=== PATIENT | female | born 1955 | race Asian ===

== ENCOUNTER 2016-11-19 11:37 | Emergency (ER) | payer OTHER ==
[~2016-11-19] VITALS: Wt 72.1 kg
[2016-11-19] MEDS ORDERED: SOD CHLORIDE 0.9% 1,000 ML IV STA (12:05)
[2016-11-19 12:27] LABS: ADD SCAN DIFF NO
[2016-11-19 12:29] LABS: BASOPHILS % 0.4 % (0.0-2.0); EOSINOPHILS # 0.1 10^3/ul (0.0-0.5); EOSINOPHILS % 1.5 % (0.0-7.0); HEMATOCRIT 40.7 % (37.0-47.0); HEMOGLOBIN 13.9 g/dl (12.0-16.0); LYMPHOCYTES % 42.8 % (15.0-51.0); MEAN CORPUSCULAR HEMOGLOBIN 29.8 pg (29.0-33.0); MEAN CORPUSCULAR HGB CONC 34.2 g/dl (32.0-37.0); MEAN CORPUSCULAR VOLUME 87.2 fl (82.0-101.0); MEAN PLATELET VOLUME 9.1 fl (7.4-10.4); MONOCYTE # 0.2 10^3/ul (0.3-0.9); MONOCYTES % 4.7 % (0.0-11.0); NEUTROPHIL # 2.4 10^3/ul (1.6-7.5); NEUTROPHILS % 50.4 % (39.0-77.0); PLATELET COUNT 287 10^3/UL (140-415); RED BLOOD COUNT 4.67 10^6/ul (4.20-5.40); RED CELL DISTRIBUTION WIDTH 12.3 % (11.5-14.5); WHITE BLOOD COUNT 4.7 10^3/ul (4.8-10.8)
[2016-11-19] MEDS ORDERED: NITROGLYCERIN (SL) 0.4 MG TAB SL PRN (12:30)
--- NOTE | 2016-11-19 12:31 | RADRPT ---
PROCEDURE: Chest x-ray CLINICAL INDICATION: Chest pain TECHNIQUE: Chest single view COMPARISON: None FINDINGS: The heart is normal in size. The pulmonary vessels are normal in caliber. The lungs are clear. Th e costophrenic angles are sharp. The visualized bony thorax is unremarkable. IMPRESSION: No acute cardiopulmonary disease. RPTAT: HH .Yuri Snyder MD, Date Time Electronically viewed and signed by .Yuri Snyder MD, MD on 11/19/2016 12:30 .W/
[2016-11-19 12:40] LABS: INR 0.91; PROTIME 12.2 Sec (12.2-14.2)
[2016-11-19 12:41] LABS: PARTIAL THROMBOPLASTIN TIME 24.9 Sec (25.0-35.0)
[2016-11-19 12:44] LABS: CHLORIDE 102 mmol/L (97-110); POTASSIUM 3.6 mmol/L (3.5-5.1); SODIUM 146 mmol/L (135-144)
[2016-11-19 12:47] LABS: ANION GAP 19 (8-16); BLOOD UREA NITROGEN 9 mg/dl (7-20); CALCIUM 10.1 mg/dl (8.4-10.2); CARBON DIOXIDE 29 mmol/L (21-31); CREATININE 0.68 mg/dl (0.44-1.00); GLUCOSE 113 mg/dl (70-220)
[2016-11-19 13:02] LABS: TROPONIN-I < 0.012 ng/ml (0.00-0.12)
[2016-11-19] MEDS ORDERED: ASPI81TA3 PO (13:18)
[2016-11-19] MEDS ORDERED: PRAV40TA76 PO (13:18)
[2016-11-19] MEDS ORDERED: LISI20TA11 PO (13:18)
[2016-11-19] MEDS ORDERED: HYDR12.58 PO (13:19)
[2016-11-19] MEDS ORDERED: KETOROLAC 15 MG INJ IV STA (13:35)
[2016-11-19] MEDS ORDERED: IOHEXOL 350MG/ML 50 ML BTL ONE (14:19)
[2016-11-19] MEDS ORDERED: IOHEXOL 100 ML ONE (14:19)
[2016-11-19] MEDS ORDERED: SOD CHLORIDE 0.9% 100 ML ONE (14:19)
--- NOTE | 2016-11-19 14:48 | RADRPT ---
PROCEDURE: CTA Chest and pulmonary angiogram. CLINICAL INDICATION: Chest pain and shortness of breath. TECHNIQUE: CT scan of the chest and CT pulmonary angiogram was performed on a multidetector high-r Innometrix Incolution CT scanner. High-resolution thin slice coronal and sagittal imaging was obtained from the axial source images. 3-D volumetric rendered post processing was performed as well. The patient w as examined following the uncomplicated intravenous administration of 110 cc of Omnipaque-350. The i mages were reviewed on a PACS workstation. The total exam CTDI equals 14.08, and 17.82 and the total exam DLP equals 626.39 mGy-cm. One or more of the following dose reduction techniques were used: Automated exposure control. Adjustment of the mA and/or kV according to patient size. Use of iterative reconstruction technique. COMPARISON: None FINDINGS: CT chest: The lungs are clear. No focal opacification, effusion, pneumothorax, edema, or nodules are seen. T he central tracheobronchial tree is clear. The mediastinum is unremarkable without evidence for mass or lymphadenopathy. The vascular structur es of the mediastinum are normal in course and caliber. The heart size is normal without pericardia l thickening or effusion. The axillary, subpectoral, and supraclavicular regions are unremarkable. Imaging obtained through the upper abdomen is remarkable for mild hiatal hernia. The adrenal glands are symmetrically normal. The surrounding chest wall is unremarkable. The osseous structures are unremarkable CT pulmonary angiogram: No thrombus, clot, filling defect, or pulmonary web is identified. The pulmonary arteries are ajay l in caliber and morphology. No filling defect is present to suggest pulmonary embolism. There is no evidence for pulmonary arterial hypertension. IMPRESSION: 1. No evidence for pulmonary embolism. 2. No mass, lymphadenopathy or acute infiltrates. 3. Small hiatal hernia. RPTAT: BB .Seven Baumann MD, MD Date Time Electronically viewed and signed by .Seven Baumann MD, on 11/19/2016 14:47 .O/
--- NOTE | 2016-11-19 15:56 | ERD ---
ER Documentation Chief Complaint Date/Time DATE: 11/19/16 TIME: 15:52 Chief Complaint CHEST PAIN SINCE 0300. NON PROVOKED. MILD SOB NO N/V. NO DIAPHORESIS HPI This is a 61-year-old female who presents to the emergency room for evaluation of chest pain. The patient states that she has had chest pain constantly since 3 AM. She states it is an achy pain in the center of her chest with no radiation. The patient denies any shortness of breath associated this, denies any nausea, vomiting or diaphoresis came to the ER today for evaluation. ROS All systems reviewed and are negative except as per history of present illness. Medications Home Meds Reported Medications Hydrochlorothiazide* (Hydrochlorothiazide*) 12.5 Mg Tablet, 12.5 MG PO DAILY, # 30 TAB 11/19/16 Pravastatin Sodium* (Pravastatin Sodium*) 40 Mg Tablet, 40 MG PO HS, TAB 11/19/16 Aspirin* (Aspirin* Chew) 81 Mg Tab.chew, 81 MG PO DAILY, TAB.CHEW 11/19/16 Lisinopril* (Lisinopril*) 20 Mg Tablet, 20 MG PO DAILY, #30 TAB 11/19/16 Allergies Allergies: Coded Allergies: No Known Allergy (Unverified , 11/19/16) PMhx/Soc Medical and Surgical Hx: pt denies Medical Hx, pt denies Surgical Hx Hx Alcohol Use: No Hx Substance Use: No Hx Tobacco Use: No Smoking Status: Never smoker Physical Exam Vitals Vital Signs Date Time Temp Pulse Resp B/P Pulse Ox O2 Delivery O2 Flow Rate FiO2 11/19/16 13:35 85 20 135/72 99 Room Air 11/19/16 12:17 Nasal Cannula 11/19/16 11:41 99.5 112 20 167/89 99 Physical Exam INITIAL VITAL SIGNS: Reviewed by me GENERAL: The patient is well developed and appropriate for usual state of health in no apparent distress HEENT: Pupils equal, round, and reactive to light. EOMI. There is no scleral icterus. NECK: C-spine is soft and supple, there is no meningismus. There is no cervical lymphadenopathy. LUNGS: Tachycardic. There are no rales, wheezes or rhonchi. HEART: Regular rate and rhythm, no murmurs, clicks, rubs or gallops. ABDOMEN: Soft, non-tender, non-distended. There are bowel sounds in all four quadrants. No rebound or guarding. EXTREMITIES: There is no peripheral cyanosis or edema. No focal swelling or erythema. NEUROLOGICAL: The patient moves all four extremities with 5/5 strength. Cranial nerves II - XII are intact. Normal gait. Alert and oriented SKIN: There is no apparent rash or petechiae. HEME/LYMPHATIC: There is no evidence of excessive bruising or lymphedema. PSYCHIATRIC: The patient does not appear anxious or depressed. Result Diagram: 11/19/16 1211 11/19/16 1210 Results 24 hrs Laboratory Tests Test 11/19/16 12:10 11/19/16 12:11 11/19/16 15:00 Activated Partial Thromboplast Time 24.9Sec Anion Gap 19 Blood Urea Nitrogen 9mg/dl Calcium Level 10.1mg/dl Carbon Dioxide Level 29mmol/L Chloride Level 102mmol/L Creatinine 0.68mg/dl Glucose Level 113mg/dl INR International Normalized Ratio 0.91 Potassium Level 3.6mmol/L Prothrombin Time 12.2Sec Prothrombin Time Ratio 1.0 Sodium Level 146mmol/L Troponin I < 0.012ng/ml < 0.012ng/ml Basophils # 0.010^3/ul Basophils % 0.4% Eosinophils # 0.110^3/ul Eosinophils % 1.5% Hematocrit 40.7% Hemoglobin 13.9g/dl Lymphocytes # 2.010^3/ul Lymphocytes % 42.8% Mean Corpuscular Hemoglobin 29.8pg Mean Corpuscular Hemoglobin Concent 34.2g/dl Mean Corpuscular Volume 87.2fl Mean Platelet Volume 9.1fl Monocytes # 0.210^3/ul Monocytes % 4.7% Neutrophils # 2.410^3/ul Neutrophils % 50.4% Nucleated Red Blood Cells # 0.010^3/ul Nucleated Red Blood Cells % 0.0/100WBC Platelet Count 54199^3/UL Red Blood Count 4.6710^6/ul Red Cell Distribution Width 12.3% White Blood Count 4.710^3/ul Current Medications Medications (Trade) Dose Ordered Sig/Irineo Route PRN Reason Start Time Stop Time Status Last Admin Dose Admin Sodium Chloride (NS) 1,000 ml @ 1,000 mls/hr Q1H STAT IV 11/19/16 12:05 11/19/16 13:04 DC 11/19/16 12:12 Nitroglycerin (Nitroglycerin (Sl Tab) 0.4 Mg) 1 tab Q5M UP TO 3 DOSES PRN SL CHEST PAIN 11/19/16 12:30 11/19/16 12:12 Ketorolac Tromethamine (Toradol) 15 mg ONCE STAT IV 11/19/16 13:35 11/19/16 13:36 DC 11/19/16 13:52 IV Flush 10 ml 10 ml STK-MED ONCE .ROUTE 11/19/16 14:19 11/19/16 14:20 DC 11/19/16 14:35 Sodium Chloride 100 ml @ ud STK-MED ONCE .ROUTE 11/19/16 14:19 11/19/16 14:20 DC 11/19/16 14:36 Iohexol (Omnipaque) 100 ml @ ud STK-MED ONCE .ROUTE 11/19/16 14:19 11/19/16 14:20 DC 11/19/16 14:36 Iohexol (Omnipaque 350mg/ ml) 50 ml STK-MED ONCE .ROUTE 11/19/16 14:19 11/19/16 14:20 DC 11/19/16 14:36 Procedures/MDM EKG: Rate/Rhythm: [Normal Sinus Rhythm] QRS, ST, T-waves: [No changes consistent w/ acute ischemia] Impression: [No evidence of ischemia or arrhythmia] EKG: #2 Rate/Rhythm: Sinus tachycardia QRS, ST, T-waves: [No changes consistent w/ acute ischemia] Impression: [No evidence of ischemia or arrhythmia] Chest X-ray 1V Interpreted by me: Soft Tissue: No acute abnormalities Bones: No acute abnormalities Mediastinum/Cardiac Silhouette/Lungs: [No acute abnormalities] CT angios chest: 1. No evidence for pulmonary embolism. 2. No mass, lymphadenopathy or acute infiltrates. 3. Small hiatal hernia. This 61-year-old female presents to the ER for evaluation of chest pain. When I evaluated her she was initially tachycardic. She is not hypoxic, and in no respiratory distress. Lab work was obtained including an EKG which was nonischemic. Troponin was ordered which was normal. This patient continued to be a tachycardic so I did obtain a CAT scan of the chest to rule out pulmonary embolism. CAT scan of the pulmonary arteries does not reveal any pulmonary embolism, no mass, or infiltrates. This patient was given IV fluids, and was given Toradol for pain. Pulmonary evaluation she states that her pain has resolved. She is in no acute distress, she is hemodynamically stable at this time. His second troponin was obtained which is also normal. The patient has an appointment with her primary care physician tomorrow, advised her to follow- up with primary care physician to schedule a stress test as an outpatient. The patient verbalized understanding, advised to return immediately to the ER should he develop any worsening symptoms. The patient verbalized understanding. Differential diagnoses entertained was broad with potential high acuity. Patient has been evaluated for acute myocardial infarction, unstable angina, aortic dissection, pulmonary embolism, other intrathoracic and cardiac concerns. Ultimately the patient's evaluation is nondiagnostic. Based on the patient's lack of risk factors, as well as the patient's clinical, laboratory, and imaging data, the patient appears to be low risk for these high risk causes of chest pain. Departure Diagnosis: Primary Impression: Chest pain Additional Impression: Leukopenia Condition: Stable CHRISTY ACUÑA DO Nov 19, 2016 15:55
[2016-11-19 16:12] VITALS: BP 133/72; PULSE 85; RESP 14; TEMP 98.9
== END 2016-11-19 16:13 | disposition home or self-care (01) ==
LOC: E/R 11:37
DX: R07.9 Chest pain, unspecified (principal); D72.819 Decreased white blood cell count, unspecified; Z79.82 Long term (current) use of aspirin
CPT/HCPCS: 36415; 71010; 71275; 80048; 84484; 85025; 85610; 85730; 93005; 96361; 96374; J1885; J7030; Q9967; Z7502; Z7610; A4310

== ENCOUNTER 2019-01-03 09:35 | Emergency (ER) | payer MEDICARE, OTHER ==
[~2019-01-03] VITALS: Ht 154.9 cm; Wt 76.4 kg
[~2019-01-03 09:35] MED LIST: ASPI-903 PO; HYDR12.58 PO; LISI-471 PO; PRAV40TA76 PO
[2019-01-03 09:50] VITALS: Ht 154.9 cm; Wt 76.4 kg
[2019-01-03] MEDS ORDERED: IBUPROFEN 600 MG TAB PO ONE (11:00)
--- NOTE | 2019-01-03 11:03 | ERD ---
ER Documentation Chief Complaint Chief Complaint C/O HEADACHE X 1 WEEK , NO NEURO DEFICITS , INTERMITTENT CHEST PAIN HPI 63-year-old woman complaining of hypertension x2 days despite using her lisinopril 20 mg twice daily. She had a left-sided headache as well for the last 1 week. She has had no slurred speech, no weakness in her arms or legs, no difficulty speaking or difficulty ambulating. She denies dysuria but states she has been urinating more than usual. ROS All systems reviewed and are negative except as per history of present illness. Medications Home Meds Active Scripts Naproxen* (Naprosyn*) 500 Mg Tablet, 500 MG PO BID PRN for PAIN AND/OR INFLAMMATION, #30 TAB Prov:DIXON STEWART MD 01/03/19 Reported Medications Pravastatin Sodium* (Pravastatin Sodium*) 20 Mg Tablet, 20 MG PO HS, TAB 01/03/19 Hydrochlorothiazide* (Hydrochlorothiazide*) 12.5 Mg Tablet, 12.5 MG PO DAILY, #30 TAB 01/03/19 Lisinopril* (Lisinopril*) 20 Mg Tablet, 20 MG PO DAILY, #30 TAB 01/03/19 Aspirin* (Aspirin* EC) 81 Mg Tablet.dr, 81 MG PO DAILY, TAB 01/03/19 Discontinued Reported Medications Hydrochlorothiazide* (Hydrochlorothiazide*) 12.5 Mg Tablet, 12.5 MG PO DAILY, #30 TAB 11/19/16 Pravastatin Sodium* (Pravastatin Sodium*) 40 Mg Tablet, 40 MG PO HS, TAB 11/19/16 Aspirin* (Aspirin* Chew) 81 Mg Tab.chew, 81 MG PO DAILY, TAB.CHEW 11/19/16 Lisinopril* (Lisinopril*) 20 Mg Tablet, 20 MG PO DAILY, #30 TAB 11/19/16 Allergies Allergies: Coded Allergies: No Known Allergy (Unverified , 01/03/19) PMhx/Soc Hypertension Medical and Surgical Hx: pt denies Surgical Hx Anesthesia Reaction: No Hx Neurological Disorder: No Hx Respiratory Disorders: No Hx Cardiac Disorders: Yes (htn, cholesterol) Hx Psychiatric Problems: No Hx Miscellaneous Medical Probl: No Hx Alcohol Use: No Hx Substance Use: No Hx Tobacco Use: No Smoking Status: Never smoker FmHx Family History: No diabetes Physical Exam Vitals Vital Signs Date Temp Pulse Resp B/P (MAP) Pulse Ox O2 O2 Flow FiO2 Time Delivery Rate 01/03/19 77 18 143/84 98 Room Air 12:14 (103) 01/03/19 98.1 74 18 173/78 99 09:50 (109) Physical Exam GENERAL: Well-developed, well-nourished, well-hydrated, in no apparent distress, looks nontoxic in appearance HEENT: Moist mucous membranes, pink conjunctiva, no cervical spine tenderness or step-off deformities, no goiter, no jaundice or icterus, extraocular movements intact without pain. No submandibular induration, and no pharyngeal erythema NEURO: Alert and oriented 3, cranial nerves II through XII intact bilaterally, pupils equal round reactive to light, no focal deficits or facial asymmetry, sensation intact distally Strength 5/5 in upper and lower extremities bilaterally CARDIAC: Regular rate and rhythm, no murmurs rubs or gallops LUNGS: Clear bilaterally no wheezing crackles or stridor ABDOMEN: Soft nontender, no guarding, no rigidity, no rebound, no psoas sign no obturator sign. Normoactive bowel sounds SKIN: Warm and dry to touch, no abrasions, contusions, or hematomas, no lacerations, no ecchymosis, no target lesions, and without ulcers EXTREMITIES: No clubbing cyanosis or edema, calves are bilaterally symmetrical, no Homans sign, no popliteal cord sign. Distal pulses equal and bilateral PSYCH: Normal affect without agitation or irritability Results 24 hrs Laboratory Tests Test 01/03/19 11:22 Urine Color STRAW Urine Clarity CLEAR Urine pH 7.0 Urine Specific Robinson 1.008 Urine Ketones NEGATIVE mg/dL Urine Nitrite NEGATIVE mg/dL Urine Bilirubin NEGATIVE mg/dL Urine Urobilinogen NEGATIVE mg/dL Urine Leukocyte Esterase NEGATIVE Justin/ul Urine Microscopic RBC 4 /HPF Urine Microscopic WBC 1 /HPF Urine Hemoglobin 2+ mg/dL Urine Glucose NEGATIVE mg/dL Urine Total Protein NEGATIVE mg/dl Current Medications Medications Dose Sig/Irineo Start Time Status Last (Trade) Ordered Route PRN Stop Time Admin Dose Reason Admin Ibuprofen 600 mg ONCE ONCE 01/03/19 DC 01/03/19 (Motrin) PO 11:00 11:19 01/03/19 11:01 Procedures/MDM I administered ibuprofen 600 mg p.o. x1 for headache Urine analysis was negative for infection. Patient's blood pressure improved and she is asymptomatic at this time. EKG performed, read by me revealed a normal sinus rhythm at 78 bpm, normal axis, narrow QRS complex, no concerning ST elevations or depressions noted. Differential diagnoses considered, included but not limited to acute coronary syndrome, pulmonary embolism, aortic dissection, abdominal aortic aneurysm, sepsis, stroke, meningitis, encephalitis, pneumonia, appendicitis, cholecystitis, bowel obstruction, pyelonephritis, nephrolithiasis, cystitis, as well as metabolic, hematologic, and electrolyte abnormalities. As well as abscess, cellulitis, fractures, and dislocations. Patient feels much better at this time, and vital signs are normal, symptoms have improved. I did give strict instructions to return to the ED if symptoms continue or worsen, patient will otherwise follow-up with primary care physician. Patient understood instructions and agreed to plan. Disclaimer: Inadvertent spelling and grammatical errors are likely due to EHR/dictation software use and do not reflect on the overall quality of patient care. Also, please note that the electronic time recorded on this note does not necessarily reflect the actual time of the patient encounter. Departure Diagnosis: Primary Impression: Hypertension Hypertension type: essential hypertension Qualified Codes: I10 - Essential (primary) hypertension Additional Impression: Headache Headache type: tension-type Headache chronicity pattern: acute headache Intractability: not intractable Qualified Codes: G44.209 - Tension-type headache, unspecified, not intractable Condition: DIXON Fabian MD Jan 03, 2019 11:03
[2019-01-03] MEDS ORDERED: LISI-471 PO (11:10)
[2019-01-03] MEDS ORDERED: ASPI-817 PO (11:10)
[2019-01-03] MEDS ORDERED: PRAV20TA63 PO (11:11)
[2019-01-03] MEDS ORDERED: HYDR12.58 PO (11:11)
[2019-01-03] MEDS ORDERED: NAPR-985 PO (11:47)
[2019-01-03 12:14] VITALS: BP 143/84; PULSE 77; RESP 18
== END 2019-01-03 12:16 | disposition home or self-care (01) ==
LOC: E/R 09:35
DX: I10 Essential (primary) hypertension (principal); G44.209 Tension-type headache, unspecified, not intractable; Z79.82 Long term (current) use of aspirin
CPT/HCPCS: 81001; 93005